=== PATIENT | male | born 1945 | race Caucasian/White ===

== ENCOUNTER 2017-02-06 04:16 | Emergency (ER) | payer MEDICARE, BC ==
[~2017-02-06] VITALS: Ht 172.7 cm; Wt 81.0 kg
[2017-02-06 04:18] VITALS: BP 164/94; PULSE 79; RESP 18; O2SAT 98
[2017-02-06 04:23] VITALS: BP 164/94; PULSE 78; RESP 18; TEMP 99; O2SAT 98
[2017-02-06] MEDS ORDERED: MONT5CHW5 CHEW (04:34)
[2017-02-06] MEDS ORDERED: ASPI81CH CHEW (04:34)
--- NOTE | 2017-02-06 04:34 | PD ---
HPI Chief Complaint: Headache Time Seen by Provider: 04:17 Travel History International Travel<30 days: No Contact w/Intl Traveler<30days: No Traveled to known affect area: No History of Present Illness HPI The patient is a 71 year-old male who presents to the emergency department for headache. The patient states he awakened at 2 AM to use the bathroom when he developed a headache. Headache is located behind the right ear, sharp, stabbing , and intermittent. The patient states he stated weight from 2 AM to 3 AM watching TV, continue to have the headache, therefore, called 911 because he was afraid he was having a stroke. The patient denied any visual acuity problems, diplopia, photophobia, dysarthria, chest pain, shortness of breath, nausea, vomiting, or focal deficits. The headache has improved since arrival, he does take an aspirin daily, denies any history of previous CVA or intracranial hemorrhage. Symptoms are mild, exacerbated after he awakened in the middle of night to use the restroom, and self alleviating. PFSH Past Medical History Narrative Medical Psoriasis, asthma Influenza Vaccination: Yes Past Surgical History Narrative Surgical Noncontributory Social History Alcohol Use: No Tobacco Use: No Substance Use: No Allergies-Medications (Allergen,Severity, Reaction): Coded Allergies: Iodine (Verified Allergy, Severe, Hives, 02/06/17) Seafood (Verified Allergy, Severe, Hives, 02/06/17) Reported Meds & Prescriptions Reported Meds & Active Scripts Active Reported Montelukast (Montelukast Sodium) 5 Mg Chew 5 Mg CHEW HS Aspirin 81 Mg Chew 81 Mg CHEW DAILY Review of Systems Except as stated in HPI: all other systems reviewed are Neg General / Constitutional: No: Fever Eyes: No: Blurred Vision, Photophobia, Visual changes HENT: Positive: Headaches, No: Neck Pain Cardiovascular: No: Chest Pain or Discomfort Respiratory: No: Shortness of Breath Gastrointestinal: No: Nausea, Vomiting, Abdominal Pain Musculoskeletal: No: Weakness Neurologic: Positive: Headache, No: Dizziness, Focal Abnormalities, Change in Mentation, Slurred Speech, Paresthesia, Sensory Disturbance Physical Exam Narrative GENERAL: Awake, alert, pleasant 71-year-old male who appears his stated age and is in no acute respiratory distress. SKIN: Focused skin assessment warm/dry. HEAD: Atraumatic. Normocephalic. EYES: Pupils equal and round. 3 mm bilateral and reactive. ENT: No nasal bleeding or discharge. Mucous membranes pink and moist. NECK: Trachea midline. No JVD. CARDIOVASCULAR: Regular rate and rhythm. No murmur appreciated. RESPIRATORY: No accessory muscle use. Clear to auscultation. Breath sounds equal bilaterally. GASTROINTESTINAL: Abdomen soft, non-tender, nondistended. MUSCULOSKELETAL: No obvious deformities. No clubbing. No cyanosis. No edema. NEUROLOGICAL: Awake and alert. No obvious cranial nerve deficits. Motor grossly within normal limits. Normal speech. Nonfocal. Oriented 4. Follows commands without difficulty. NIHSS 0. No drift of the upper or lower extremities. Sensation is symmetric on the arms and legs bilaterally. Smile is symmetric. No dysarthria noted. PSYCHIATRIC: Appropriate mood and affect; insight and judgment normal. Data Data Last Documented VS Vital Signs Date Time Temp Pulse Resp B/P Pulse Ox O2 Delivery O2 Flow Rate FiO2 02/06/17 04:23 78 18 98 Room Air 02/06/17 04:23 99.0 164/[address] Brain W/O Iv Contrast(Rout) (02/06/17 ) [facility] Medical Decision Making Medical Screen Exam Complete: Yes Emergency Medical Condition: Yes Medical Record Reviewed: Yes Interpretation(s) Last Impressions Head CT 02/06/17 0000 Signed Impressions: Service Date/Time: Monday, February 06, 2017 04:35 - CONCLUSION: No evidence of acute intracranial process. Efe Martin MD Differential Diagnosis Differential diagnosis includes ICH, carotid dissection, tension headache, muscle spasm, glaucoma, temporal arteritis, cluster headache. Narrative Course The patient's neurologic exam is unremarkable, his headache has improved, his headache started at 2 AM, he is within the 6 hour window, therefore, CT the brain was ordered to rule out subarachnoid hemorrhage. CT of the brain was negative. The patient was reevaluated at 5:20 AM. The patient's headache was mild, 2/10, therefore, he was administered Tylenol 650 mg orally. The patient stable for outpatient follow-up. Diagnosis Primary Impression: Cephalgia Qualified Code: R51 - Acute nonintractable headache, unspecified headache type Patient Instructions: General Instructions Additional Instructions: Follow-up with her primary physician. Tylenol and or Motrin as needed for pain. Return if symptoms worsen or progress. Disposition: 01 DISCHARGE HOME Condition: Stable Triston Javier MD February 06, 2017 04:34
--- NOTE | 2017-02-06 05:08 | RADHPO ---
EXAM DATE/TIME: 02/06/2017 04:35 [facility] COMPARISON: No previous studies available for comparison. INDICATIONS : Cephalgia. RADIATION DOSE: 64.46 CTDIvol (mGy) MEDICAL HISTORY : None SURGICAL HISTORY : None. ENCOUNTER: Initial ACUITY: 1 day PAIN SCALE: 7/10 LOCATION: Right occipital TECHNIQUE: Multiple contiguous axial images were obtained of the head. Using automated exposure control and adj ustment of the mA and/or kV according to patient size, radiation dose was kept as low as reasonably a chievable to obtain optimal diagnostic quality images. FINDINGS: There is patchy diminished attenuation in deep white matter, most conspicuously in the periventricula r parietal regions. No evidence of intracranial mass or hemorrhage. There is nothing to suggest acute infarction. The extracranial structures are benign and intact. CONCLUSION: No evidence of acute intracranial process. Efe Martin MD on February 06, 2017 at 5:04 Board Certified Radiologist. This report was verified electronically.
[2017-02-06] MEDS ORDERED: ACETAMINOPHEN 325 MG TAB PO ONE (05:30)
[2017-02-06 05:31] VITALS: BP 144/83; PULSE 73; RESP 16; O2SAT 97
== END 2017-02-06 05:43 | disposition home or self-care (01) ==
LOC: PHED 04:16
DX: R51 Headache (principal)
CPT/HCPCS: 70450; 99284